=== PATIENT | male | born 1940 | race Caucasian/White ===

== ENCOUNTER 2018-08-23 21:07 | Inpatient (IN) ==
[2018-08-23 22:04] LABS: Basophils % 0.4 % (0.0-0.8); Eosinophils # 0.1 10*3/uL (0.0-0.87); Eosinophils % 1.5 % (0.00-10.9); Hematocrit 27.3 VOL% (42.0-52.0); Hemoglobin 9.3 GM/DL (14.0-18.0); Immature Granulocytes % 0.9 %; Immature Granulocytes Absolute 0.07 #; Lymphocytes # 1.5 10*3/uL (1.4-4.0); Lymphocytes % 18.3 % (21.2-54.2); Mean Corpuscular HGB Conc 34.1 GM/DL (32-36); Mean Corpuscular Hemoglobin 33 PG (27-34); Mean Corpuscular Volume 97.2 FL (87-102); Mean Platelet Volume 10.2 FL (9.6-12.0); Monocytes # 1.1 10*3/uL (0.11-0.8); Monocytes % 13.3 % (1.7-12.7); Neutrophils # 5.3 10*3/uL (1.4-7.4); Neutrophils % 65.6 % (38.7-73.9); Platelet Count 184 T/CUMM (130-400); Red Blood Count 2.81 MC/CUMM (3.8-5.5); Red Cell Distribution Width 13.3 % (9.3-17.3); White Blood Count 8.1 T/CUMM (4-12)
[2018-08-23 22:10] LABS: Partial Thromboplastin Time 26.1 SECS (0-40)
[2018-08-23 22:22] LABS: Alanine Aminotransferase 19 U/L (16-61); Albumin 2.8 G/DL (3.4-5.0); Alkaline Phosphatase 65 U/L (45-117); Aspartate Amino Transferase 28 U/L (0-37); Blood Urea Nitrogen 73 MG/DL (7-18); Calcium 7.4 MG/DL (8.5-10.1); Glucose 216 MG/DL (74-106); Osmolality,Calculated 285.1 MOS/KG (273-304); Potassium 3.4 MMOL/L (3.5-5.1); Sodium 128 MMOL/L (136-145); Total Protein 6.6 G/DL (6.4-8.3); Troponin I 0.039 NG/ML (0.00-0.045)
[2018-08-23] MEDS ORDERED: VANCOMYCIN INJ 1,000 MG in SODIUM CHLORIDE 0.9% 250 ML IV STA (23:09)
[2018-08-23] MEDS ORDERED: LEVOFLOXACIN INJ 750 MG in PREMIX 1 EACH IV STA (23:09)
[2018-08-24] MEDS ORDERED: diphenhydrAMINE CAP 25 MG CAPSULE PO PRN (00:01)
[2018-08-24] MEDS ORDERED: PROMETHAZINE 25 MG/1 ML VIAL IM PRN (00:01)
[2018-08-24] MEDS ORDERED: ONDANSETRON 4 MG/2 ML VIAL IV PRN (00:01)
[2018-08-24] MEDS ORDERED: NICOTINE 21 MG/24 HR PATCH TRANSDERM PRN (00:01)
[2018-08-24] MEDS ORDERED: ALBUTEROL/IPRATROPIUM 3 ML NEB RESP TX PRN (00:36)
[2018-08-24] MEDS ORDERED: VANCOMYCIN INJ 750 MG in SODIUM CHLORIDE 0.9% 250 ML IV PRN (01:26)
[2018-08-24] MEDS ORDERED: VANCOMYCIN INJ 1,000 MG in SODIUM CHLORIDE 0.9% 250 ML IV ONE (01:30)
[2018-08-24] MEDS: SODIUM CHLORIDE 0.9% 1,000 ML IV SCH (02:44)
[2018-08-24] MEDS: DOXYCYCLINE HYCLATE INJ 100 MG in SODIUM CHLORIDE 0.9% 100 ML IV SCH ×2 (02:44→13:23)
[2018-08-24] MEDS: FUROSEMIDE 40 MG TABLET PO SCH ×2 (03:07→09:20)
[2018-08-24] MEDS: rOPINIRole 1 MG TABLET PO SCH ×2 (03:07→21:12)
[2018-08-24] MEDS: MELATONIN 3 MG TABLET PO SCH ×2 (03:07→21:12)
[2018-08-24] MEDS: PIPERACILLIN/TAZOBACTAM 3,375 MG in SODIUM CHLORIDE 0.9% 100 ML IV SCH ×2 (05:27→16:44)
[2018-08-24 05:54] LABS: Basophils % 0.3 % (0.0-0.8); Eosinophils # 0.1 10*3/uL (0.0-0.87); Eosinophils % 1.5 % (0.00-10.9); Hematocrit 23.9 VOL% (42.0-52.0); Hemoglobin 7.9 GM/DL (14.0-18.0); Immature Granulocytes % 0.7 %; Immature Granulocytes Absolute 0.04 #; Lymphocytes # 1.1 10*3/uL (1.4-4.0); Lymphocytes % 18.4 % (21.2-54.2); Mean Corpuscular HGB Conc 33.1 GM/DL (32-36); Mean Corpuscular Hemoglobin 32 PG (27-34); Mean Platelet Volume 10.3 FL (9.6-12.0); Monocytes # 0.9 10*3/uL (0.11-0.8); Monocytes % 15.8 % (1.7-12.7); Neutrophils # 3.7 10*3/uL (1.4-7.4); Neutrophils % 63.3 % (38.7-73.9); Platelet Count 158 T/CUMM (130-400); Red Blood Count 2.44 MC/CUMM (3.8-5.5); Red Cell Distribution Width 13.2 % (9.3-17.3); White Blood Count 5.8 T/CUMM (4-12)
[2018-08-24 06:14] LABS: Albumin 2.3 G/DL (3.4-5.0); Bilirubin,Total 0.5 MG/DL (0.2-1.0); Osmolality,Calculated 287.9 MOS/KG (273-304); Potassium 2.8 MMOL/L (3.5-5.1); Total Protein 5.5 G/DL (6.4-8.3)
[2018-08-24 06:26] LABS: Eosinophils 3 % (0-10); Hypochromasia 1+; Lymphocytes 17 % (20-55); Platelet Estimate Normal; Segmented Neutrophils 69 % (50-85); Total Cells Counted 100
[2018-08-24] MEDS ORDERED: LIFITEGRAST BOTH EYES SCH (09:00)
[2018-08-24] MEDS ORDERED: CHLORTHALIDONE 25 MG TABLET PO SCH (09:00)
[2018-08-24] MEDS ORDERED: PROPYLENE GLYCOL BOTH EYES SCH (09:00)
[2018-08-24] MEDS ORDERED: CYCLOSPORINE OPH EMUL BOTH EYES SCH (09:00)
[2018-08-24] MEDS ORDERED: PEG BOTH EYES SCH (09:00)
[2018-08-24] MEDS ORDERED: GABAPENTIN 600 MG TABLET PO SCH (09:00)
[2018-08-24] MEDS ORDERED: GLUCAGON 1 MG VIAL IM PRN (09:14)
[2018-08-24] MEDS ORDERED: DEXTROSE 50% 25 GM/50 ML VIAL IV PRN (09:14)
[2018-08-24] MEDS: POTASSIUM CHLORIDE 20 MEQ TABLET PO PRN ×4 (09:19→21:12)
[2018-08-24] MEDS: CARVEDILOL 3.125 MG TABLET PO SCH ×2 (09:19→21:12)
[2018-08-24] MEDS: MAGNESIUM OXIDE 400 MG TABLET PO SCH ×4 (09:20→21:12)
[2018-08-24] MEDS: PANTOPRAZOLE 40 MG TABLET PO SCH (09:20)
[2018-08-24] MEDS: CLOPIDOGREL 75 MG TABLET PO SCH (09:20)
[2018-08-24] MEDS: ROSUVASTATIN 20 MG TABLET PO SCH (09:20)
[2018-08-24] MEDS: ASPIRIN EC 81 MG TABLET PO SCH (09:20)
[2018-08-24] MEDS: INSULIN GLARGINE 100 UNIT/ML SUBCUT SCH (09:21)
[2018-08-24] MEDS: CALCIUM ACETATE 667 MG CAPSULE PO SCH ×3 (09:21→21:12)
[2018-08-24 09:41] LABS: Apearance,Urine CLEAR (Clear); Bacteria,Urine Occasional /HPF (Few); Bilirubin,Urine Negative (Negative); Blood, Urine Negative (Negative); Glucose,Urine (UA) 50 mg/dL (Negative); Hyaline Casts,Urine 1 /LPF (0-3); Ketones,Urine Negative (Negative); Mucus,Urine Occasional /LPF (Occasional); Nitrite,Urine Negative (Negative); Protein,Urine Negative; RBC,Urine 4 /HPF (0-4); Urine Color Yellow (Yellow); Urine Urobilinogen < 2.0 EU/DL (0.2-1.0); WBC,Urine 2 /HPF (0-6)
[2018-08-24] MEDS ORDERED: POTASSIUM CHLORIDE 20 MEQ TABLET PO ONE (10:37)
[2018-08-24] MEDS ORDERED: INSULIN REGULAR 100 UNIT/ML ONE (11:59)
[2018-08-24] MEDS: INSULIN REGULAR 100 UNIT/ML SUBCUT SCH ×3 (12:07→21:12)
[2018-08-24] MEDS: HEPARIN 5,000 UNIT/1 ML VIAL SUBCUT SCH ×2 (13:23→21:12)
[2018-08-24] MEDS: tiZANidine 4 MG TABLET PO PRN (16:43)
[2018-08-24] MEDS: PSYLLIUM POWDER 3.7 GM/PACK PO SCH (21:13)
[2018-08-25] MEDS: DOXYCYCLINE HYCLATE INJ 100 MG in SODIUM CHLORIDE 0.9% 100 ML IV SCH ×2 (00:42→14:25)
[2018-08-25] MEDS: tiZANidine 4 MG TABLET PO PRN (01:31)
[2018-08-25] MEDS: PIPERACILLIN/TAZOBACTAM 3,375 MG in SODIUM CHLORIDE 0.9% 100 ML IV SCH ×2 (02:19→17:02)
[2018-08-25] MEDS: HEPARIN 5,000 UNIT/1 ML VIAL SUBCUT SCH ×3 (04:05→21:04)
[2018-08-25 04:19] LABS: Basophils % 0.4 % (0.0-0.8); Eosinophils # 0.2 10*3/uL (0.0-0.87); Eosinophils % 3.7 % (0.00-10.9); Hematocrit 21.9 VOL% (42.0-52.0); Hemoglobin 7.5 GM/DL (14.0-18.0); Immature Granulocytes % 0.7 %; Immature Granulocytes Absolute 0.04 #; Lymphocytes # 1.1 10*3/uL (1.4-4.0); Mean Corpuscular HGB Conc 34.2 GM/DL (32-36); Mean Corpuscular Hemoglobin 34 PG (27-34); Mean Corpuscular Volume 98.2 FL (87-102); Mean Platelet Volume 10.5 FL (9.6-12.0); Monocytes # 0.8 10*3/uL (0.11-0.8); Monocytes % 13.8 % (1.7-12.7); Neutrophils # 3.3 10*3/uL (1.4-7.4); Neutrophils % 60.4 % (38.7-73.9); Platelet Count 166 T/CUMM (130-400); Red Blood Count 2.23 MC/CUMM (3.8-5.5); Red Cell Distribution Width 13.3 % (9.3-17.3); White Blood Count 5.4 T/CUMM (4-12)
[2018-08-25 04:52] LABS: % Iron Saturation 32.8 % (18-50); Calcium 7.4 MG/DL (8.5-10.1); Ferritin 812.2 ng/ml (26-388); Osmolality,Calculated 287.4 MOS/KG (273-304); Potassium 4.2 MMOL/L (3.5-5.1)
[2018-08-25 05:09] LABS: Folate 19.2 NG/ML (5.4-24.0); Vitamin B12 1040 PG/ML (211-911)
[2018-08-25 05:24] LABS: Sedimentation Rate-Westergren 134 MM/HR (0-20)
[2018-08-25 08:06] LABS: Hemoglobin A1 (Alkaline) 97.8 % (96.5-98.5); Hemoglobin A2 (Alkaline) 2.2 % (1.5-3.5)
[2018-08-25] MEDS: CARVEDILOL 3.125 MG TABLET PO SCH ×2 (08:54→21:04)
[2018-08-25] MEDS: ROSUVASTATIN 20 MG TABLET PO SCH (08:54)
[2018-08-25] MEDS: MAGNESIUM OXIDE 400 MG TABLET PO SCH ×4 (08:54→21:04)
[2018-08-25] MEDS: ASPIRIN EC 81 MG TABLET PO SCH (08:54)
[2018-08-25] MEDS: POTASSIUM CHLORIDE 20 MEQ TABLET PO SCH (08:54)
[2018-08-25] MEDS: PANTOPRAZOLE 40 MG TABLET PO SCH (08:54)
[2018-08-25] MEDS: PSYLLIUM POWDER 3.7 GM/PACK PO SCH ×2 (08:54→21:06)
[2018-08-25] MEDS: CLOPIDOGREL 75 MG TABLET PO SCH (08:54)
[2018-08-25] MEDS: CALCIUM ACETATE 667 MG CAPSULE PO SCH ×2 (08:54→17:02)
[2018-08-25] MEDS: INSULIN REGULAR 100 UNIT/ML SUBCUT SCH ×4 (08:55→21:28)
[2018-08-25] MEDS: INSULIN GLARGINE 100 UNIT/ML SUBCUT SCH (08:55)
[2018-08-25] MEDS ORDERED: EPOETIN ALFA 10,000 UNIT/1 ML VIAL SUBCUT ONE (12:30)
[2018-08-25] MEDS ORDERED: EPOETIN ALFA 10,000 UNIT/1 ML VIAL IV ONE (13:12)
[2018-08-25] MEDS: SODIUM CHLORIDE 0.9% 1,000 ML IV SCH (14:30)
[2018-08-25] MEDS: rOPINIRole 1 MG TABLET PO SCH (21:04)
[2018-08-25] MEDS: MELATONIN 3 MG TABLET PO SCH (21:04)
[2018-08-25] MEDS: guaiFENesin 200 MG/10 ML UDCUP PO PRN (21:45)
[2018-08-26] MEDS: DOXYCYCLINE HYCLATE INJ 100 MG in SODIUM CHLORIDE 0.9% 100 ML IV SCH ×2 (02:10→15:02)
[2018-08-26] MEDS: PIPERACILLIN/TAZOBACTAM 3,375 MG in SODIUM CHLORIDE 0.9% 100 ML IV SCH ×2 (03:12→16:51)
[2018-08-26 05:37] LABS: Basophils % 0.5 % (0.0-0.8); Eosinophils # 0.3 10*3/uL (0.0-0.87); Eosinophils % 5.5 % (0.00-10.9); Hematocrit 24.6 VOL% (42.0-52.0); Immature Granulocytes % 0.5 %; Immature Granulocytes Absolute 0.03 #; Lymphocytes # 1.1 10*3/uL (1.4-4.0); Lymphocytes % 19.7 % (21.2-54.2); Mean Corpuscular HGB Conc 32.5 GM/DL (32-36); Mean Corpuscular Hemoglobin 33 PG (27-34); Mean Corpuscular Volume 100.8 FL (87-102); Mean Platelet Volume 10.2 FL (9.6-12.0); Monocytes # 0.6 10*3/uL (0.11-0.8); Monocytes % 10.4 % (1.7-12.7); Neutrophils # 3.7 10*3/uL (1.4-7.4); Neutrophils % 63.4 % (38.7-73.9); Platelet Count 191 T/CUMM (130-400); Red Blood Count 2.44 MC/CUMM (3.8-5.5); Red Cell Distribution Width 13.2 % (9.3-17.3); White Blood Count 5.8 T/CUMM (4-12)
[2018-08-26 05:51] LABS: Calcium 7.4 MG/DL (8.5-10.1); Osmolality,Calculated 290.1 MOS/KG (273-304); Potassium 3.6 MMOL/L (3.5-5.1)
[2018-08-26] MEDS: HEPARIN 5,000 UNIT/1 ML VIAL SUBCUT SCH ×3 (06:04→20:03)
[2018-08-26 06:29] LABS: % Iron Saturation 55.2 % (18-50); Ferritin 805.7 ng/ml (26-388)
[2018-08-26] MEDS: ROSUVASTATIN 20 MG TABLET PO SCH (08:00)
[2018-08-26] MEDS: INSULIN REGULAR 100 UNIT/ML SUBCUT SCH ×4 (08:00→20:02)
[2018-08-26] MEDS: CALCIUM ACETATE 667 MG CAPSULE PO SCH ×3 (08:00→16:51)
[2018-08-26] MEDS: ACETAMINOPHEN 325 MG TABLET PO PRN ×2 (08:01→16:52)
[2018-08-26] MEDS: tiZANidine 4 MG TABLET PO PRN (08:01)
[2018-08-26] MEDS: PANTOPRAZOLE 40 MG TABLET PO SCH (08:01)
[2018-08-26] MEDS: ASPIRIN EC 81 MG TABLET PO SCH (08:01)
[2018-08-26] MEDS: MAGNESIUM OXIDE 400 MG TABLET PO SCH ×4 (08:01→20:03)
[2018-08-26] MEDS: CLOPIDOGREL 75 MG TABLET PO SCH (08:01)
[2018-08-26] MEDS: CARVEDILOL 3.125 MG TABLET PO SCH ×2 (08:02→20:04)
[2018-08-26] MEDS: guaiFENesin 200 MG/10 ML UDCUP PO PRN ×3 (08:02→16:51)
[2018-08-26] MEDS: PSYLLIUM POWDER 3.7 GM/PACK PO SCH ×2 (08:02→20:07)
[2018-08-26] MEDS: POTASSIUM CHLORIDE 20 MEQ TABLET PO SCH (08:02)
[2018-08-26] MEDS: INSULIN GLARGINE 100 UNIT/ML SUBCUT SCH (08:02)
[2018-08-26] MEDS ORDERED: VANCOMYCIN INJ 1,500 MG in SODIUM CHLORIDE 0.9% 500 ML IV ONE (11:00)
[2018-08-26] MEDS: traMADol 50 MG TABLET PO PRN (20:03)
[2018-08-26] MEDS: rOPINIRole 1 MG TABLET PO SCH (20:03)
[2018-08-26] MEDS: MELATONIN 3 MG TABLET PO SCH (20:04)
[2018-08-27] MEDS: PIPERACILLIN/TAZOBACTAM 3,375 MG in SODIUM CHLORIDE 0.9% 100 ML IV SCH ×2 (02:21→14:57)
[2018-08-27] MEDS: DOXYCYCLINE HYCLATE INJ 100 MG in SODIUM CHLORIDE 0.9% 100 ML IV SCH ×2 (02:23→13:07)
[2018-08-27] MEDS: MORPHINE 4 MG/1 ML VIAL IV PRN ×2 (02:23→06:27)
[2018-08-27] MEDS: HEPARIN 5,000 UNIT/1 ML VIAL SUBCUT SCH ×3 (04:50→21:15)
[2018-08-27 05:53] LABS: Basophils # 0.1 10*3/uL (0.0-0.2); Basophils % 0.9 % (0.0-0.8); Eosinophils # 0.4 10*3/uL (0.0-0.87); Eosinophils % 6.6 % (0.00-10.9); Hematocrit 26.7 VOL% (42.0-52.0); Hemoglobin 8.5 GM/DL (14.0-18.0); Immature Granulocytes % 0.5 %; Immature Granulocytes Absolute 0.03 #; Lymphocytes # 1.3 10*3/uL (1.4-4.0); Lymphocytes % 22.9 % (21.2-54.2); Mean Corpuscular HGB Conc 31.8 GM/DL (32-36); Mean Corpuscular Hemoglobin 32 PG (27-34); Mean Corpuscular Volume 101.1 FL (87-102); Mean Platelet Volume 10.3 FL (9.6-12.0); Monocytes # 0.6 10*3/uL (0.11-0.8); Monocytes % 11.2 % (1.7-12.7); Neutrophils # 3.3 10*3/uL (1.4-7.4); Neutrophils % 57.9 % (38.7-73.9); Platelet Count 233 T/CUMM (130-400); Red Blood Count 2.64 MC/CUMM (3.8-5.5); Red Cell Distribution Width 13.4 % (9.3-17.3); White Blood Count 5.6 T/CUMM (4-12)
[2018-08-27 06:03] LABS: Calcium 7.5 MG/DL (8.5-10.1); Potassium 3.8 MMOL/L (3.5-5.1)
[2018-08-27] MEDS: INSULIN REGULAR 100 UNIT/ML SUBCUT SCH ×4 (07:43→21:15)
[2018-08-27] MEDS: ASPIRIN EC 81 MG TABLET PO SCH (08:17)
[2018-08-27] MEDS: CALCIUM ACETATE 667 MG CAPSULE PO SCH ×3 (08:17→17:08)
[2018-08-27] MEDS: POTASSIUM CHLORIDE 20 MEQ TABLET PO SCH (08:17)
[2018-08-27] MEDS: CARVEDILOL 3.125 MG TABLET PO SCH ×2 (08:18→21:14)
[2018-08-27] MEDS: INSULIN GLARGINE 100 UNIT/ML SUBCUT SCH (08:18)
[2018-08-27] MEDS: ROSUVASTATIN 20 MG TABLET PO SCH (08:18)
[2018-08-27] MEDS: PANTOPRAZOLE 40 MG TABLET PO SCH (08:18)
[2018-08-27] MEDS: MAGNESIUM OXIDE 400 MG TABLET PO SCH ×4 (08:18→21:14)
[2018-08-27] MEDS: PSYLLIUM POWDER 3.7 GM/PACK PO SCH ×2 (08:18→22:48)
[2018-08-27] MEDS: CLOPIDOGREL 75 MG TABLET PO SCH (08:18)
[2018-08-27] MEDS: traMADol 50 MG TABLET PO PRN ×2 (08:21→21:13)
[2018-08-27] MEDS: guaiFENesin 200 MG/10 ML UDCUP PO PRN ×3 (08:21→21:13)
[2018-08-27] MEDS: MELATONIN 3 MG TABLET PO SCH (21:13)
[2018-08-27] MEDS: rOPINIRole 1 MG TABLET PO SCH (21:13)
[2018-08-28] MEDS: DOXYCYCLINE HYCLATE INJ 100 MG in SODIUM CHLORIDE 0.9% 100 ML IV SCH ×3 (00:40→12:58)
[2018-08-28] MEDS: PIPERACILLIN/TAZOBACTAM 3,375 MG in SODIUM CHLORIDE 0.9% 100 ML IV SCH (02:11)
[2018-08-28] MEDS: HEPARIN 5,000 UNIT/1 ML VIAL SUBCUT SCH ×2 (04:29→12:19)
[2018-08-28 06:16] LABS: Hematocrit 27.6 VOL% (42.0-52.0); Hemoglobin 8.9 GM/DL (14.0-18.0); Mean Corpuscular Volume 102.2 FL (87-102); White Blood Count 5.6 T/CUMM (4-12)
[2018-08-28 06:17] LABS: Basophils % 0.7 % (0.0-0.8); Eosinophils # 0.3 10*3/uL (0.0-0.87); Eosinophils % 4.8 % (0.00-10.9); Immature Granulocytes % 0.7 %; Immature Granulocytes Absolute 0.04 #; Lymphocytes # 1.4 10*3/uL (1.4-4.0); Lymphocytes % 24.4 % (21.2-54.2); Mean Corpuscular HGB Conc 32.2 GM/DL (32-36); Mean Corpuscular Hemoglobin 33 PG (27-34); Mean Platelet Volume 10.2 FL (9.6-12.0); Monocytes # 0.7 10*3/uL (0.11-0.8); Monocytes % 12.6 % (1.7-12.7); Neutrophils # 3.2 10*3/uL (1.4-7.4); Neutrophils % 56.8 % (38.7-73.9); Platelet Count 252 T/CUMM (130-400); Red Cell Distribution Width 13.6 % (9.3-17.3)
[2018-08-28 06:28] LABS: Calcium 8.3 MG/DL (8.5-10.1); Osmolality,Calculated 283.1 MOS/KG (273-304); Potassium 4.8 MMOL/L (3.5-5.1)
[2018-08-28] MEDS: ROSUVASTATIN 20 MG TABLET PO SCH (08:53)
[2018-08-28] MEDS: CARVEDILOL 3.125 MG TABLET PO SCH (08:53)
[2018-08-28] MEDS: ASPIRIN EC 81 MG TABLET PO SCH (08:54)
[2018-08-28] MEDS: MAGNESIUM OXIDE 400 MG TABLET PO SCH ×3 (08:54→16:58)
[2018-08-28] MEDS: CLOPIDOGREL 75 MG TABLET PO SCH (08:54)
[2018-08-28] MEDS: PANTOPRAZOLE 40 MG TABLET PO SCH (08:55)
[2018-08-28] MEDS: POTASSIUM CHLORIDE 20 MEQ TABLET PO SCH (08:55)
[2018-08-28] MEDS: CALCIUM ACETATE 667 MG CAPSULE PO SCH ×3 (08:55→16:58)
[2018-08-28] MEDS: INSULIN REGULAR 100 UNIT/ML SUBCUT SCH ×3 (08:56→15:58)
[2018-08-28] MEDS: INSULIN GLARGINE 100 UNIT/ML SUBCUT SCH (08:56)
[2018-08-28] MEDS: PSYLLIUM POWDER 3.7 GM/PACK PO SCH (08:58)
[2018-08-28] MEDS ORDERED: ceFAZolin 1,000 MG VIAL INTRAPERIT SCH (13:30)
[2018-08-28 16:26] VITALS: BP 132/60
== END 2018-08-28 18:24 | disposition home health service (06) | DRG 70 ==
LOC: N.ED 21:07 → N.EDINP 08-24 00:01 → SUATTDRO 08-24 00:01 → N.5E 08-24 01:00
PROVIDERS: ADMIT Hospitalist; ATTEND Internal Medicine

== ENCOUNTER 2020-02-16 10:08 | Inpatient (IN) ==
[2020-02-16 11:06] LABS: Basophils % 0.3 % (0.0-0.8); Eosinophils % 0.4 % (0.00-10.9); Hematocrit 29.9 VOL% (42.0-52.0); Hemoglobin 10.4 GM/DL (14.0-18.0); Immature Granulocytes % 0.7 %; Immature Granulocytes Absolute 0.08 #; Lymphocytes % 9.3 % (21.2-54.2); Mean Corpuscular HGB Conc 34.8 GM/DL (32-36); Mean Platelet Volume 10.3 FL (9.6-12.0); Monocytes % 6.9 % (1.7-12.7); Neutrophils % 82.4 % (38.7-73.9); Platelet Count 202 T/CUMM (130-400); Red Blood Count 3.18 MC/CUMM (3.8-5.5); Red Cell Distribution Width 14.2 % (9.3-17.3); White Blood Count 10.7 T/CUMM (4-12)
[2020-02-16 11:13] LABS: Albumin 2.6 G/DL (3.4-5.0); Bilirubin,Total 0.7 MG/DL (0.2-1.0); Calcium 8.5 MG/DL (8.5-10.1); Osmolality,Calculated 271.8 MOS/KG (273-304); Total Protein 6.7 G/DL (6.4-8.3)
[2020-02-16] MEDS ORDERED: POTASSIUM CHLORIDE 20 MEQ TABLET PO STA (11:17)
[2020-02-16 12:03] LABS: RBC,Peritoneal Fluid 104 T/CUMM
[2020-02-16 12:04] LABS: Neutrophils,Peritoneal Fluid 95 %
[2020-02-16] MEDS ORDERED: MORPHINE 4 MG/1 ML VIAL IV STA (13:40)
[2020-02-16] MEDS ORDERED: ONDANSETRON 4 MG/2 ML VIAL IV ONE (13:41)
[2020-02-16] MEDS ORDERED: DEXTROSE 50% 25 GM/50 ML SYRINGE IV PRN (14:17)
[2020-02-16] MEDS ORDERED: GLUCAGON 1 MG VIAL IM PRN (14:17)
[2020-02-16] MEDS ORDERED: ACETAMINOPHEN 325 MG TABLET PO PRN (14:17)
[2020-02-16] MEDS ORDERED: hydrALAZINE 20 MG/1 ML VIAL IV PRN (14:17)
[2020-02-16] MEDS: INSULIN REGULAR 100 UNIT/ML SUBCUT SCH ×2 (15:47→20:55)
[2020-02-16] MEDS: ceFAZolin 1,000 MG VIAL INTRAPERIT SCH (18:00)
[2020-02-16] MEDS: ONDANSETRON 4 MG/2 ML VIAL IV PRN (18:25)
[2020-02-16] MEDS: MORPHINE 4 MG/1 ML VIAL IV PRN (18:25)
[2020-02-16] MEDS: hydrOXYzine HCL 25 MG TABLET PO SCH (20:54)
[2020-02-17] MEDS: ONDANSETRON 4 MG/2 ML VIAL IV PRN (06:23)
[2020-02-17] MEDS: MORPHINE 4 MG/1 ML VIAL IV PRN (06:23)
[2020-02-17 07:02] LABS: Basophils % 0.3 % (0.0-0.8); Eosinophils # 0.2 10*3/uL (0.0-0.87); Eosinophils % 2.3 % (0.00-10.9); Hematocrit 31.6 VOL% (42.0-52.0); Immature Granulocytes % 0.8 %; Immature Granulocytes Absolute 0.05 #; Lymphocytes # 1.3 10*3/uL (1.4-4.0); Lymphocytes % 19.8 % (21.2-54.2); Mean Corpuscular HGB Conc 34.8 GM/DL (32-36); Mean Corpuscular Volume 94.6 FL (87-102); Mean Platelet Volume 10.7 FL (9.6-12.0); Neutrophils % 68.8 % (38.7-73.9); Platelet Count 217 T/CUMM (130-400); Red Blood Count 3.34 MC/CUMM (3.8-5.5); Red Cell Distribution Width 14.4 % (9.3-17.3); White Blood Count 6.5 T/CUMM (4-12)
[2020-02-17 07:33] LABS: Albumin 2.3 G/DL (3.4-5.0); Bilirubin,Total 0.7 MG/DL (0.2-1.0); Calcium 8.6 MG/DL (8.5-10.1); Osmolality,Calculated 274.8 MOS/KG (273-304); Risk Ratio 3.02; Thyroid Stimulating Hormone 7.83 uIU/ml (0.358-3.74); Total Protein 6.3 G/DL (6.4-8.3)
[2020-02-17] MEDS: hydrOXYzine HCL 25 MG TABLET PO SCH ×2 (08:24→20:39)
[2020-02-17] MEDS: PANTOPRAZOLE 40 MG TABLET PO SCH (08:24)
[2020-02-17] MEDS: INSULIN REGULAR 100 UNIT/ML SUBCUT SCH ×4 (08:25→20:39)
[2020-02-17] MEDS: MAGNESIUM HYDROXIDE SUSP 30 ML UDCUP PO PRN (10:23)
[2020-02-17] MEDS ORDERED: POLYETHYLENE GLYCOL POWDER 17 GM PACK PO PRN (15:28)
[2020-02-17] MEDS: ceFAZolin 1,000 MG VIAL INTRAPERIT SCH (18:10)
[2020-02-18] MEDS: MORPHINE 4 MG/1 ML VIAL IV PRN (06:36)
[2020-02-18] MEDS: ONDANSETRON 4 MG/2 ML VIAL IV PRN ×2 (06:37→17:16)
[2020-02-18 07:17] LABS: Basophils % 0.5 % (0.0-0.8); Eosinophils # 0.3 10*3/uL (0.0-0.87); Eosinophils % 5.9 % (0.00-10.9); Hematocrit 27.7 VOL% (42.0-52.0); Hemoglobin 9.7 GM/DL (14.0-18.0); Immature Granulocytes % 1.4 %; Immature Granulocytes Absolute 0.08 #; Lymphocytes # 1.1 10*3/uL (1.4-4.0); Lymphocytes % 18.9 % (21.2-54.2); Mean Corpuscular Volume 94.2 FL (87-102); Mean Platelet Volume 10.8 FL (9.6-12.0); Monocytes % 9.1 % (1.7-12.7); Neutrophils % 64.2 % (38.7-73.9); Platelet Count 189 T/CUMM (130-400); Red Blood Count 2.94 MC/CUMM (3.8-5.5); Red Cell Distribution Width 14.4 % (9.3-17.3); White Blood Count 5.6 T/CUMM (4-12)
[2020-02-18] MEDS: hydrOXYzine HCL 25 MG TABLET PO SCH ×3 (07:19→22:25)
[2020-02-18 07:21] LABS: Alanine Aminotransferase < 9 U/L (16-61); Albumin 1.8 G/DL (3.4-5.0); Alkaline Phosphatase 71 U/L (45-117); Aspartate Amino Transferase 8 U/L (0-37); Bilirubin,Total < 0.39 MG/DL (0.2-1.0); Blood Urea Nitrogen 34 MG/DL (7-18); Calcium 8.1 MG/DL (8.5-10.1); Estimated Glom Filtration Rate 9 ML/MIN; Glucose 261 MG/DL (74-106); Osmolality,Calculated 278.7 MOS/KG (273-304); Total Protein 5.4 G/DL (6.4-8.3)
[2020-02-18] MEDS: PANTOPRAZOLE 40 MG TABLET PO SCH (09:17)
[2020-02-18] MEDS: INSULIN REGULAR 100 UNIT/ML SUBCUT SCH ×4 (09:23→22:25)
[2020-02-18] MEDS ORDERED: VANCOMYCIN 1,000 MG VIAL INTRAPERIT SCH (18:00)
[2020-02-19 04:21] LABS: Basophils % 0.6 % (0.0-0.8); Eosinophils # 0.3 10*3/uL (0.0-0.87); Eosinophils % 7.1 % (0.00-10.9); Hemoglobin 9.3 GM/DL (14.0-18.0); Immature Granulocytes % 2.1 %; Lymphocytes # 1.2 10*3/uL (1.4-4.0); Lymphocytes % 24.4 % (21.2-54.2); Mean Corpuscular HGB Conc 34.4 GM/DL (32-36); Mean Corpuscular Volume 95.7 FL (87-102); Mean Platelet Volume 10.4 FL (9.6-12.0); Monocytes % 12.3 % (1.7-12.7); Neutrophils % 53.5 % (38.7-73.9); Platelet Count 202 T/CUMM (130-400); Red Blood Count 2.82 MC/CUMM (3.8-5.5); Red Cell Distribution Width 14.1 % (9.3-17.3); White Blood Count 4.8 T/CUMM (4-12)
[2020-02-19 04:49] LABS: Alanine Aminotransferase < 6 U/L (16-61); Albumin 1.8 G/DL (3.4-5.0); Alkaline Phosphatase 70 U/L (45-117); Aspartate Amino Transferase 9 U/L (0-37); Blood Urea Nitrogen 33 MG/DL (7-18); Calcium 8.2 MG/DL (8.5-10.1); Estimated Glom Filtration Rate 9 ML/MIN; Glucose 222 MG/DL (74-106); Osmolality,Calculated 273.8 MOS/KG (273-304); Total Protein 5.3 G/DL (6.4-8.3)
[2020-02-19 04:55] LABS: Free T4 (Free Thyroxine) 1.04 NG/DL (0.76-1.46)
[2020-02-19] MEDS: hydrOXYzine HCL 25 MG TABLET PO SCH ×3 (06:12→21:09)
[2020-02-19] MEDS: INSULIN REGULAR 100 UNIT/ML SUBCUT SCH ×4 (09:05→21:09)
[2020-02-19] MEDS: PANTOPRAZOLE 40 MG TABLET PO SCH (09:06)
[2020-02-19] MEDS ORDERED: POTASSIUM CHLORIDE 20 MEQ TABLET PO ONE ×2 (14:00→21:00)
[2020-02-19] MEDS: GENTAMICIN 80 MG/2 ML VIAL INTRAPERIT SCH (18:00)
[2020-02-19] MEDS: MORPHINE 4 MG/1 ML VIAL IV PRN (21:10)
[2020-02-19] MEDS: MAGNESIUM HYDROXIDE SUSP 30 ML UDCUP PO PRN (21:10)
[2020-02-20] MEDS: MORPHINE 4 MG/1 ML VIAL IV PRN ×3 (01:33→16:26)
[2020-02-20 05:47] LABS: Basophils % 0.6 % (0.0-0.8); Eosinophils # 0.4 10*3/uL (0.0-0.87); Eosinophils % 6.6 % (0.00-10.9); Hematocrit 27.8 VOL% (42.0-52.0); Hemoglobin 9.5 GM/DL (14.0-18.0); Immature Granulocytes % 3.6 %; Immature Granulocytes Absolute 0.19 #; Lymphocytes # 1.1 10*3/uL (1.4-4.0); Lymphocytes % 20.4 % (21.2-54.2); Mean Corpuscular HGB Conc 34.2 GM/DL (32-36); Mean Corpuscular Volume 95.2 FL (87-102); Mean Platelet Volume 10.4 FL (9.6-12.0); Monocytes % 12.9 % (1.7-12.7); Neutrophils % 55.9 % (38.7-73.9); Platelet Count 220 T/CUMM (130-400); Red Blood Count 2.92 MC/CUMM (3.8-5.5); Red Cell Distribution Width 13.9 % (9.3-17.3); White Blood Count 5.3 T/CUMM (4-12)
[2020-02-20 06:03] LABS: Calcium 8.4 MG/DL (8.5-10.1); Osmolality,Calculated 282.7 MOS/KG (273-304)
[2020-02-20] MEDS: LEVOTHYROXINE 25 MCG TABLET PO SCH (06:37)
[2020-02-20] MEDS: hydrOXYzine HCL 25 MG TABLET PO SCH ×3 (06:37→21:11)
[2020-02-20] MEDS: PANTOPRAZOLE 40 MG TABLET PO SCH (09:08)
[2020-02-20] MEDS: INSULIN REGULAR 100 UNIT/ML SUBCUT SCH ×4 (09:09→21:10)
[2020-02-20] MEDS ORDERED: LINACLOTIDE 145 MCG CAPSULE PO ONE (10:12)
[2020-02-20] MEDS ORDERED: MINERAL OIL ENEMA 133 ML BOTTLE RECTAL ONE (10:30)
[2020-02-20] MEDS ORDERED: MAGNESIUM CITRATE 300 ML BOTTLE PO ONE (18:30)
[2020-02-20] MEDS ORDERED: BISACODYL 5 MG TABLET PO ONE (18:30)
[2020-02-20] MEDS: GENTAMICIN 80 MG/2 ML VIAL INTRAPERIT SCH (18:46)
[2020-02-20] MEDS: PSYLLIUM POWDER 3.7 GM/PACK PO SCH (20:51)
[2020-02-21] MEDS: MAGNESIUM HYDROXIDE SUSP 30 ML UDCUP PO PRN (00:26)
[2020-02-21] MEDS: MORPHINE 4 MG/1 ML VIAL IV PRN ×2 (00:26→10:29)
[2020-02-21] MEDS: ONDANSETRON 4 MG/2 ML VIAL IV PRN (01:21)
[2020-02-21] MEDS: LEVOTHYROXINE 25 MCG TABLET PO SCH (05:52)
[2020-02-21] MEDS: hydrOXYzine HCL 25 MG TABLET PO SCH ×3 (05:53→21:12)
[2020-02-21 06:33] LABS: Basophils % 0.7 % (0.0-0.8); Eosinophils # 0.4 10*3/uL (0.0-0.87); Eosinophils % 5.9 % (0.00-10.9); Hematocrit 30.4 VOL% (42.0-52.0); Hemoglobin 10.2 GM/DL (14.0-18.0); Immature Granulocytes % 3.9 %; Immature Granulocytes Absolute 0.23 #; Lymphocytes % 17.3 % (21.2-54.2); Mean Corpuscular HGB Conc 33.6 GM/DL (32-36); Mean Corpuscular Volume 98.4 FL (87-102); Mean Platelet Volume 10.3 FL (9.6-12.0); Neutrophils % 60.2 % (38.7-73.9); Platelet Count 249 T/CUMM (130-400); Red Blood Count 3.09 MC/CUMM (3.8-5.5); Red Cell Distribution Width 14.2 % (9.3-17.3); White Blood Count 5.9 T/CUMM (4-12)
[2020-02-21 06:56] LABS: Calcium 8.8 MG/DL (8.5-10.1); Osmolality,Calculated 279.1 MOS/KG (273-304)
[2020-02-21] MEDS: INSULIN REGULAR 100 UNIT/ML SUBCUT SCH ×4 (09:41→21:11)
[2020-02-21] MEDS: PSYLLIUM POWDER 3.7 GM/PACK PO SCH ×2 (11:17→21:11)
[2020-02-21] MEDS: PANTOPRAZOLE 40 MG TABLET PO SCH (11:21)
[2020-02-21] MEDS: LINACLOTIDE 145 MCG CAPSULE PO SCH (11:39)
[2020-02-21] MEDS: GENTAMICIN 80 MG/2 ML VIAL INTRAPERIT SCH (18:30)
[2020-02-22] MEDS: MORPHINE 4 MG/1 ML VIAL IV PRN ×2 (00:33→09:32)
[2020-02-22] MEDS: hydrOXYzine HCL 25 MG TABLET PO SCH ×2 (05:28→13:08)
[2020-02-22] MEDS: LEVOTHYROXINE 25 MCG TABLET PO SCH (05:32)
[2020-02-22] MEDS: INSULIN REGULAR 100 UNIT/ML SUBCUT SCH ×2 (09:25→11:54)
[2020-02-22] MEDS: PSYLLIUM POWDER 3.7 GM/PACK PO SCH (09:25)
[2020-02-22] MEDS: PANTOPRAZOLE 40 MG TABLET PO SCH (09:25)
[2020-02-22] MEDS: LINACLOTIDE 145 MCG CAPSULE PO SCH (09:25)
[2020-02-22 11:34] VITALS: BP 125/66
== END 2020-02-22 14:30 | disposition home or self-care (01) | DRG 867 ==
LOC: N.ED 10:08 → N.EDINP 13:44 → N.3E 15:05
PROVIDERS: ADMIT Internal Medicine; ATTEND Internal Medicine